=== PATIENT | female | born 1970 | race Caucasian/White ===

== ENCOUNTER → 2019-11-05 | Outpatient (CLI) | payer OTHER ==
[~2019-11-05] MED LIST: Bactrim Ds Tab1 EACH PO; Cleocin HCl300 MG PO; HYDACE5 PO; Norco 5-325 Ta1 EACH PO; Percocet 5-3251 EACH PO; Zofran Odt4 MG SL
== END | disposition home or self-care (01) ==
LOC: LAB SHORT 15:00 → LAB 15:00
DX: B34.9 Viral infection, unspecified (principal)
CPT/HCPCS: 87081

== ENCOUNTER 2020-10-30 16:33 | Inpatient (IN) | payer OTHER ==
[~2020-10-30] VITALS: Ht 157.5 cm; Wt 75.0 kg
[2020-10-30] MEDS ORDERED: Morphine Sulfat30 M1 PO (17:23)
[2020-10-30] MEDS ORDERED: PRILOSEC OTC20 MG PO (17:24)
[2020-10-30] MEDS ORDERED: FOLI1 PO (17:24)
[2020-10-30 17:25] LABS: LYMPHOCYTES ABSOLUTE AUTO 1.45 K/mm3 (0.84-5.20); LYMPHOCYTES PERCENT AUTO 12 % (21-46); RDW Coefficient Variation 15.9 % (11.7-14.2)
[2020-10-30] MEDS ORDERED: TRAZ50 PO (17:25)
[2020-10-30] MEDS ORDERED: Ventolin/Prove6.7 GM INH (17:26)
[2020-10-30 17:31] LABS: BASOPHILS ABSOLUTE AUTO 0.03 K/mm3 (0.00-0.23); BASOPHILS PERCENT AUTO 0 % (0-2); EOSINOPHILS ABSOLUTE AUTO 0.06 K/mm3 (0.00-0.68); EOSINOPHILS PERCENT AUTO 1 % (0-6); Hematocrit 34.2 % (33.0-51.0); Hemoglobin 12.1 g/dL (11.5-16.0); IMMATURE GRAN ABSOLUTE AUTO 0.11 K/mm3 (0.00-0.10); IMMATURE GRAN PERCENT AUTO 1 % (0-1); MONOCYTES ABSOLUTE AUTO 1.14 K/mm3 (0.16-1.47); MONOCYTES PERCENT AUTO 9 % (4-13); Mean Corpuscular HGB 31.4 pg (26.0-34.0); Mean Corpuscular HGB Conc 35.4 g/dL (31.5-36.5); Mean Corpuscular Volume 89 fL (80-100); NEUTROPHILS ABSOLUTE AUTO 9.41 K/mm3 (1.96-9.15); NEUTROPHILS PERCENT AUTO 77 % (41-73); RDW Standard Deviation 51.7 fL (35.1-46.3); Red Blood Cell Count 3.85 M/mm3 (3.80-5.20)
[2020-10-30 17:34] LABS: Platelet Count 459 K/mm3 (150-400)
[2020-10-30 17:48] LABS: Albumin, Blood 3.6 g/dL (3.4-5.0); Albumin/Globulin Ratio 0.7 (0.8-1.8); Bilirubin, Total 0.6 mg/dL (0.1-1.0); Bun/Creatinine Ratio 42.6 (12.0-20.0); Calcium, Blood 8.1 mg/dL (8.5-10.1); Creatinine, Blood 1.48 mg/dL (0.40-1.00); Potassium, Blood 3.1 mmol/L (3.5-5.5); Total Protein, Blood 8.6 g/dL (6.4-8.2)
[2020-10-30 19:41] LABS: PCO2 Arterial 22.6 mmHg (35-45); PO2 Arterial 99.5 mmHg (80-100); pH Blood Arterial 7.44 (7.35-7.45)
[2020-10-30] MEDS ORDERED: Zofran8 MG PO (20:01)
[2020-10-30] MEDS ORDERED: METO10 PO (20:02)
[2020-10-30] MEDS ORDERED: DEXA4 PO (20:02)
--- NOTE | 2020-10-30 21:59 | NUR ---
2124 PT ADMITTED TO ROOM 342 PER CART FROM ER; PT SLIDE INTO BED VIA SLIDER SHEET X 4 ASSIST; PT C/O BITTERLY ABOUT RIGHT HAND BURNING BADLY FROM KCL PIGGYBACK THAT WAS RUNNING UNDILUTED STRAIGHT INTO RIGHT HAND, PT UNABLE TO GET COMFORTABLY AND EXTREMELY ANXIOUS AND DESIRED IV TO BE PULLED OUT; THIS NURSE DISCONNECTED IV AND GOT ALL NEW TUBING AND THEN RAN .9NS AT 150ML/HR CONCURRENTLY WITH KLC AT 25ML/HR WITH PATIENT THEN VOICING THAT IV FELT FINE WITH NO MORE ANXIETY OR CLIMBING OOB; PT MUCH MORE RELAXED AFTER IV DILUTED; PT WEARING STREET PANTS AND SHOES AND DESIRED TO NOT REMOVE EXCEPT FOR BRIEF ASSESSMENT TO LOWER EXTREMITIES WHICH PATIENT ALLOWED.
--- NOTE | 2020-10-31 03:43 | NUR ---
SHIFT SUMMARY: 50 Y/O FEMALE HAD RESTLESS NIGHT FIRST 1/2 OF SHIFT WITH NAUSEA, DEYDRATION FEELING AND NEED TO RESTART IV AFTER OLD SITE WENT SQ; PT UP BSC X 1 AND VOIDED 800ML DARK YELLOW FLUID WITH PATIENT VOICING SHE FELT BETTER (LATE SHIFT); PT ALERT AND ORIENTED X 4, ABLE TO FOLLOW ALL SIMPLE VERBAL COMMANDS; PT HAD PERSISTENT NAUSEA UPON ARRIVAL TO FLOOR WITH ATIVAN 1MG IVP GIVEN WITH RELIEF FELT; BED ALARM APPLIED FOR SAFETY, BED LOW POSITION WITH CALL LIGHT AT SIDE.
[2020-10-31 09:44] LABS: Hematocrit 26.7 % (33.0-51.0); Hemoglobin 9.2 g/dL (11.5-16.0); Mean Corpuscular HGB 31.6 pg (26.0-34.0); Mean Corpuscular HGB Conc 34.5 g/dL (31.5-36.5); Mean Corpuscular Volume 92 fL (80-100); Mean Platelet Volume 9.6 fL (9.1-12.4); Platelet Count 373 K/mm3 (150-400); RDW Coefficient Variation 15.9 % (11.7-14.2); RDW Standard Deviation 52.9 fL (35.1-46.3); Red Blood Cell Count 2.91 M/mm3 (3.80-5.20); White Blood Cell Count 10.16 K/mm3 (4.00-11.30)
[2020-10-31 09:46] LABS: Bun/Creatinine Ratio 40.9 (12.0-20.0); Calcium, Blood 7.2 mg/dL (8.5-10.1); Creatinine, Blood 1.1 mg/dL (0.40-1.00)
[2020-10-31 09:47] LABS: Potassium, Blood 2.3 mmol/L (3.5-5.5)
--- NOTE | 2020-10-31 14:34 | NUR ---
Spiritual care visit conducted. Patient is sitting on a chair in the dark and alert. Patient shifts repeatedly and admits to being very uncomfortable. Patient tells me that "things are not looking good for me." Just also explains that she is not up for conversation. I ask patient if I could say a quick prayer for her and she is amenable. I gladly provide prayer. Patient voices appreciation. I will continue to remain available to patient and family as they try navigate through the emotional/spiritual aspects to her medical condition.
--- NOTE | 2020-10-31 16:28 | NUR ---
SUMMARY PT IS A/O X4, SHE IS UP w 1 ASSIST. STATE CONTINUING WEAKNESS/FATIGUE. 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 STATE BACK, HIPS, KNEES PAINFUL, CONSTANT ACHE, CAUSING HER RESTLESSNESS/ANXIOUSNESS, POOR SLEEP. PRN OXYCODONE 10MG Q6 IN[address]IVE. DR SCHWARTZ INCREASE PAIN MEDS & ADD IV ATIVAN. DX TAY, GFR 39, NA+ LOW @ 126, NS INFUSING @ 100 ML/HR. K+ CL 2.3, DR SCHWARTZ ORDER ORAL & IV SUPPLEMENTS, ORDER CHEM 8 WHEN KRIDER COMPLETE APPROX 1800. PT STATE NAUSEA CONTROL TODAY, HAVE GIVEN ZOFRAN 8MG IV X1. APPETITE POOR @ THIS TIME. DAUGHTER HAS CALLED [facility] TODAY FOR UPDATE, PROVIDED. FAMILY SUPPORTIVE. VSS.
[2020-10-31 18:36] LABS: Anion Gap 11 mmol/L (6-16); Blood Urea Nitrogen 38 mg/dL (8-24); Bun/Creatinine Ratio 41.7 (12.0-20.0); CO2, Blood 21 mmol/L (21-32); Calcium, Blood 7.6 mg/dL (8.5-10.1); Chloride, Blood 92 mmol/L (98-108); Creatinine, Blood 0.91 mg/dL (0.40-1.00); Glomerular Filtration Rate >60 (60-); Glucose, Blood 98 mg/dL (70-99); Potassium, Blood 3.8 mmol/L (3.5-5.5); Sodium, Blood 124 mmol/L (136-145)
--- NOTE | 2020-10-31 19:35 | NUR ---
PT HAD BEDSIDE ULTRASOUND WITH NICK--[email or web address] ADVISING THIS NURSE THAT ON SCAN SHE OBSERVED PTS BLADDER HAD 775ML. THIS NURSE CALLED MARGARITA ROYAL NP AND ADVISED HERE OF THE ABOVE WITH ORDERS FOR CAMPBELL CATHETER.
--- NOTE | 2020-10-31 20:51 | NUR ---
THIS NURSE PLUGGED IN PTS BEDSIDE PHONE IT WAS UNPLUGGED FROM WALL OUTLET; THIS NURSE CALLED MIESHA--DAUGHTER AT [phone] AND PROVIDED MEDICAL UPDATE (DAUGHTER IS ON RELEASE OF INFORMATION); THIS NURSE THAN HANDED PT PHONE AND SHE TALKED TO MIESHA.
[2020-10-31 23:20] LABS: Anion Gap 8 mmol/L (6-16); Blood Urea Nitrogen 37 mg/dL (8-24); Bun/Creatinine Ratio 39.2 (12.0-20.0); CO2, Blood 24 mmol/L (21-32); Calcium, Blood 7.8 mg/dL (8.5-10.1); Chloride, Blood 98 mmol/L (98-108); Creatinine, Blood 0.95 mg/dL (0.40-1.00); Glomerular Filtration Rate >60 (60-); Glucose, Blood 123 mg/dL (70-99); Potassium, Blood 3.5 mmol/L (3.5-5.5); Sodium, Blood 130 mmol/L (136-145)
--- NOTE | 2020-11-01 03:04 | NUR ---
SHIFT SUMMARY: 50 Y/O OB[place] FEMALE RESTED COMFORTABLY ALL SHIFT; DENIES NAUSEA; ALERT AND ORIENTED X 4; VOIDING CLEAR YELLOW FLUID; FEELS SLIGHTLY BETTER AND MORE ALERT; BED LOW POSITION WITH CALL LIGHT AT SIDE.
[2020-11-01 05:09] LABS: BASOPHILS ABSOLUTE AUTO 0.02 K/mm3 (0.00-0.23); BASOPHILS PERCENT AUTO 0 % (0-2); EOSINOPHILS ABSOLUTE AUTO 0.04 K/mm3 (0.00-0.68); EOSINOPHILS PERCENT AUTO 1 % (0-6); Hematocrit 24.2 % (33.0-51.0); IMMATURE GRAN PERCENT AUTO 1 % (0-1); LYMPHOCYTES PERCENT AUTO 15 % (21-46); MONOCYTES ABSOLUTE AUTO 1.08 K/mm3 (0.16-1.47); MONOCYTES PERCENT AUTO 15 % (4-13); Mean Corpuscular HGB 30.9 pg (26.0-34.0); Mean Corpuscular HGB Conc 33.1 g/dL (31.5-36.5); Mean Corpuscular Volume 93 fL (80-100); Mean Platelet Volume 9.3 fL (9.1-12.4); NEUTROPHILS ABSOLUTE AUTO 4.83 K/mm3 (1.96-9.15); NEUTROPHILS PERCENT AUTO 67 % (41-73); Platelet Count 307 K/mm3 (150-400); RDW Coefficient Variation 16.4 % (11.7-14.2); RDW Standard Deviation 56.2 fL (35.1-46.3); Red Blood Cell Count 2.59 M/mm3 (3.80-5.20); White Blood Cell Count 7.17 K/mm3 (4.00-11.30)
[2020-11-01 05:35] LABS: Albumin, Blood 2.6 g/dL (3.4-5.0); Anion Gap 8 mmol/L (6-16); Blood Urea Nitrogen 31 mg/dL (8-24); Bun/Creatinine Ratio 37.5 (12.0-20.0); CO2, Blood 24 mmol/L (21-32); Chloride, Blood 100 mmol/L (98-108); Creatinine, Blood 0.83 mg/dL (0.40-1.00); Glomerular Filtration Rate >60 (60-); Glucose, Blood 120 mg/dL (70-99); Magnesium, Blood 2.1 mg/dL (1.6-2.4); Phosphorus, Blood 1.2 mg/dL (2.5-4.9); Potassium, Blood 3.4 mmol/L (3.5-5.5); Sodium, Blood 132 mmol/L (136-145)
--- NOTE | 2020-11-02 04:16 | NUR ---
TEST ENGINE OPERATOR SUMMARY PT HAS SLEPT THE MAJORITY OF THE SHIFT WAKING UP ONCE W BREAK THROUGH PAIN, MEDICATED PER EMAR W RELIEF. PT REMAINS ON TELE RUNNING NSR IN THE 90'S TO ST IN THE LOW 100'S. PT HAS DENIED ANY NAUSEA THIS SHIFT. WILL WAIT FOR LABS TO COME IN TO SEE WHERE [facility]GB IS AT, [facility].
[2020-11-02 05:36] LABS: Albumin, Blood 2.3 g/dL (3.4-5.0); Anion Gap 5 mmol/L (6-16); Blood Urea Nitrogen 19 mg/dL (8-24); Bun/Creatinine Ratio 28.2 (12.0-20.0); CO2, Blood 28 mmol/L (21-32); Calcium, Blood 7.9 mg/dL (8.5-10.1); Chloride, Blood 104 mmol/L (98-108); Creatinine, Blood 0.67 mg/dL (0.40-1.00); Glomerular Filtration Rate >60 (60-); Glucose, Blood 93 mg/dL (70-99); Magnesium, Blood 1.6 mg/dL (1.6-2.4); Potassium, Blood 3.9 mmol/L (3.5-5.5); Sodium, Blood 137 mmol/L (136-145)
[2020-11-02 08:28] LABS: BASOPHILS ABSOLUTE AUTO 0.03 K/mm3 (0.00-0.23); BASOPHILS PERCENT AUTO 1 % (0-2); EOSINOPHILS ABSOLUTE AUTO 0.08 K/mm3 (0.00-0.68); EOSINOPHILS PERCENT AUTO 1 % (0-6); Hematocrit 23.1 % (33.0-51.0); Hemoglobin 7.6 g/dL (11.5-16.0); IMMATURE GRAN ABSOLUTE AUTO 0.06 K/mm3 (0.00-0.10); IMMATURE GRAN PERCENT AUTO 1 % (0-1); LYMPHOCYTES ABSOLUTE AUTO 1.44 K/mm3 (0.84-5.20); LYMPHOCYTES PERCENT AUTO 23 % (21-46); MONOCYTES ABSOLUTE AUTO 0.91 K/mm3 (0.16-1.47); MONOCYTES PERCENT AUTO 15 % (4-13); Mean Corpuscular HGB 32.5 pg (26.0-34.0); Mean Corpuscular HGB Conc 32.9 g/dL (31.5-36.5); Mean Platelet Volume 9.8 fL (9.1-12.4); NEUTROPHILS ABSOLUTE AUTO 3.74 K/mm3 (1.96-9.15); NEUTROPHILS PERCENT AUTO 60 % (41-73); Platelet Count 297 K/mm3 (150-400); RDW Coefficient Variation 17.1 % (11.7-14.2); RDW Standard Deviation 62.4 fL (35.1-46.3); Red Blood Cell Count 2.34 M/mm3 (3.80-5.20); White Blood Cell Count 6.26 K/mm3 (4.00-11.30)
[2020-11-02 08:29] LABS: Mean Corpuscular Volume 99 fL (80-100)
[2020-11-02] MEDS ORDERED: CITA20 PO (10:58)
[2020-11-02] MEDS ORDERED: DULCOLAX400 MG/5 M PO (10:59)
[2020-11-02] MEDS ORDERED: MELATONIN5 M1 PO (10:59)
[2020-11-02] MEDS ORDERED: Percocet 5-3251 EACH PO (11:00)
[2020-11-02] MEDS ORDERED: K-Phos Origina500 MG PO (11:01)
[2020-11-02] MEDS ORDERED: PROM25 PO (11:02)
--- NOTE | 2020-11-02 13:32 | NUR ---
PT WAS DISCHAGED VIA WHEELCHAIR AND BROUGHT TO [facility] WHERE SHE WAS MET BY FAMILY. PT WAS ALERT AND ORIENTED, MADE NO COMPLIANT OF PAIN OR V/V AT THE TIME OF DC, LINE WAS DC'S AND WITHIN NORMAL LIMITS. PATIENT PROVIDED EDICATIONS ON FU APPOINTMENTS, MEDICATIONS AND HER DIAGNOSES. BELONGINGS WERE COLLECTED.
== END 2020-11-02 13:00 | disposition home or self-care (01) | DRG 683 ==
LOC: ER 16:33 → MEDS 20:29
PROVIDERS: Emergency Medicine; Internal Medicine; Physician Assistant; ADMIT Internal Medicine
DX: N17.9 Acute kidney failure, unspecified (principal); E87.2 Acidosis; E87.1 Hypo-osmolality and hyponatremia; C34.90 Malignant neoplasm of unspecified part of unspecified bronchus or lung; C79.51 Secondary malignant neoplasm of bone; E87.6 Hypokalemia; E86.0 Dehydration; R40.2412 Glasgow coma scale score 13-15, at arrival to emergency department; F41.9 Anxiety disorder, unspecified; Z51.5 Encounter for palliative care; F17.200 Nicotine dependence, unspecified, uncomplicated; Z92.21 Personal history of antineoplastic chemotherapy; Z87.891 Personal history of nicotine dependence; Z88.0 Allergy status to penicillin
CPT/HCPCS: 36415; 36600; 74022; 80048; 80053; 80069; 82803; 83735; 84295; 85025; 85027; 96361; 96365; 96366; 96372-59; 96375; 97116; 97161; 99284-25; A9270; J1200; J1630; J1650; J2060; J2405; J2550; J2765; J3480; J7030; J7060; Q0167

== ENCOUNTER → 2020-11-26 | Outpatient (CLI) | payer OTHER ==
[~2020-11-26] MED LIST changes: +CITA20 PO; +DEXA4 PO; +DULCOLAX400 MG/5 M PO; +FOLI1 PO; +K-Phos Origina500 MG PO; +MELATONIN5 M1 PO; +METO10 PO; +Morphine Sulfat30 M1 PO; +PRILOSEC OTC20 MG PO; +PROM25 PO; +TRAZ50 PO; +Ventolin/Prove6.7 GM INH; +Zofran8 MG PO
[2020-11-26 16:58] LABS: Source, Urine Clean Catch
[2020-11-26 18:26] LABS: Bilirubin, Urine Neg (Neg); Blood, Urine Neg (Neg); Glucose Qualitative, Urine Neg (Neg); Ketones, Urine Neg (Neg); Leukocyte Esterase, Urine Neg (Neg); Nitrite, Urine Neg (Neg); Protein, Urine Neg (Neg); Specific Gravity, Urine 1.015 (1.003-1.022); Urobilinogen, Urine NORM (Normal)
[2020-11-26 18:31] LABS: Appearance, Urine Clear (Clear); Color, Urine Yellow (P-Yellow)
== END | disposition home or self-care (01) ==
LOC: PLD 16:53 → LAB SHORT 16:53
PROVIDERS: Internal Medicine Hematology & Oncology
DX: C34.02 Malignant neoplasm of left main bronchus (principal); R31.9 Hematuria, unspecified
CPT/HCPCS: 81003